=== PATIENT | male | born 1990 | race Caucasian/White ===

== ENCOUNTER 2017-02-28 17:03 | Emergency (ER) | payer SELFPAY ==
[~2017-02-28] VITALS: Ht 193 cm; Wt 95.3 kg
[~2017-02-28 17:03] MED LIST: HYDR-1231 PO; HYDR1CAP2 PO; IBUP400T22 PO; NAPR-243 PO; PRED10TA PO; TRAM50TA2 PO
[2017-02-28] MEDS ORDERED: NS IV 1000 ML 1,000 ML IV SCH (17:15)
[2017-02-28 17:30] LABS: BASOPHILS % (AUTO) 0 % (0-10); EOSINOPHILS # (AUTO) 0.2 10^3/uL (0.0-0.3); EOSINOPHILS % (AUTO) 1 % (0-10); LYMPHOCYTES # (AUTO) 0.9 X 10^3 (1.0-4.0); LYMPHOCYTES % (AUTO) 6 % (12-44); MEAN CORPUSCULAR HEMOGLOBIN 31 PG (25-34); MEAN CORPUSCULAR HGB CONC 34 G/DL (32-36); MEAN CORPUSCULAR VOLUME 90 FL (80-99); MEAN PLATELET VOLUME 10.1 FL (7.4-10.4); MONOCYTES # (AUTO) 1.1 X 10^3 (0.0-1.0); MONOCYTES % (AUTO) 7 % (0-12); NEUTROPHILS # (AUTO) 13.5 X 10^3 (1.8-7.8); NEUTROPHILS % (AUTO) 86 % (42-75); PLATELET COUNT 250 10^3/uL (130-400); RED BLOOD COUNT 5.55 10^6/uL (4.35-5.85); RED CELL DISTRIBUTION WIDTH 12.4 % (10.0-14.5); WHITE BLOOD COUNT 15.6 10^3/uL (4.3-11.0)
[2017-02-28] MEDS ORDERED: ONDANSETRON 4 MG/2 ML (SDV) Z0FRAN IVP ONE (17:30)
[2017-02-28 17:45] LABS: ANION GAP 9 MMOL/L (5-14); BAND NEUTROPHILS 4 %; BASOPHILS % (MANUAL) 0 %; BLOOD UREA NITROGEN 14 MG/DL (7-18); BUN/CREATININE RATIO 13; CALCIUM 9.8 MG/DL (8.5-10.1); CARBON DIOXIDE 28 MMOL/L (21-32); CHLORIDE 102 MMOL/L (98-107); CREATININE SERUM 1.12 MG/DL (0.60-1.30); GFR ESTIMATED > 60; GLUCOSE 108 MG/DL (70-105); LYMPHOCYTES % (MANUAL) 6 %; NEUTROPHILS % (MANUAL) 82 %; POTASSIUM 4.4 MMOL/L (3.6-5.0); SODIUM 139 MMOL/L (135-145)
--- NOTE | 2017-02-28 17:45 | ED GI ---
General Chief Complaint: Abdominal/GI Problems Stated Complaint: N/V/D Nursing Triage Note: ARRIVED VIA AMB TO ROOM 07 WITH COMPLAINTS OF N/V/D SINCE THIS AM. Sepsis Screen: No Definite Risk Source of Information: Patient, Family Exam Limitations: No Limitations History of Present Illness Time Seen By Provider: 17:39 Initial Comments The patient's a 27-year-old white male who presents with complaints of nausea vomiting and diarrhea. This began this morning. He reports that he was awake most of the night with retching and abdominal cramps. He estimates that he is both vomited and had diarrhea on 5 separate occasions. His reports that she brought a little girl out here yesterday with similar symptoms. There is no 1 in their home who has had the symptoms. He states that he has had nothing to eat today but has taken Sprite and Gatorade. Timing/Duration: 12 Hours Severity/Quality: Moderate Location: Generalized Abdomen Radiation: No Radiation Activities at Onset: None Allergies and Home Medications Allergies Coded Allergies: Amphetamine Aspartate (Verified Allergy, 09/27/11) Amphetamine Sulfate (Verified Allergy, 09/27/11) Dextroamphetamine (Verified Allergy, 09/27/11) atomoxetine HCl (Verified Allergy, 09/27/11) methylphenidate HCl (Verified Allergy, 09/27/11) Home Medications Ondansetron 8 Mg Tab.rapdis, 8 MG PO every 4 hours, #10 Prescribed by: YULIET HUERTA on 02/28/17 1748 Review of Systems Constitutional: see HPI EENTM: No Symptoms Reported Respiratory: No Symptoms Reported Cardiovascular: No Symptoms Reported Gastrointestinal: Abdominal Pain, Diarrhea, Nausea, Vomiting Genitourinary: No Symptoms Reported Musculoskeletal: no symptoms reported Skin: no symptoms reported Psychiatric/Neurological: No Symptoms Reported Endocrine: No Symptoms Reported Hematologic/Lymphatic: No Symptoms Reported Past Awqhevx-Ddbexj-Hfnhkn Hx Patient Social History Alcohol Use: Rarely Uses Recreational Drug Use: No Smoking Status: Current Everyday Smoker Recent Foreign Travel: No Contact w/Someone Who Travel: No Recent Infectious Disease Expo: No Immunizations Up To Date Date of Pneumonia Vaccine: Mar 04, 2011 Date of Influenza Vaccine: Mar 04, 2014 Seasonal Allergies Seasonal Allergies: No Surgeries History of Surgeries: Yes (pyloric stenosis as an ) Surgeries: Abdominal Respiratory History of Respiratory Disorde: No Cardiovascular History of Cardiac Disorders: No Neurological History of Neurological Disord: No Reproductive System Hx Reproductive Disorders: No Sexually Transmitted Disease: No HIV/AIDS: No Gastrointestinal History of Gastrointestinal Di: No Musculoskeletal History of Musculoskeletal Dis: No Endocrine History of Endocrine Disorders: No HEENT History of HEENT Disorders: No Cancer History of Cancer: No Psychosocial History of Psychiatric Problem: No Integumentary History of Skin or Integumenta: No Blood Transfusions History of Blood Disorders: No Family Medical History Significant Family History: No Pertinent Family Hx Physical Exam Vital Signs VS - Last 72 Hours, by Label 02/28/17 17:09 Temp 98.0 Pulse 106 Resp 18 B/P (MAP) 135/86 Pulse Ox 98 Capillary Refill : Less Than 3 Seconds General Appearance: mild distress, moderate distress HEENT: normal ENT inspection Neck: full range of motion Respiratory: chest non-tender, lungs clear, normal breath sounds, no respiratory distress, no accessory muscle use Cardiovascular: normal peripheral pulses, regular rate, rhythm, no edema, no gallop, no JVD, no murmur Gastrointestinal: abnormal bowel sounds Extremities: normal range of motion Back: normal inspection Neurologic/Psychiatric: 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, no motor/sensory deficits, alert, normal mood/affect, oriented x 3 Skin: normal color, warm/dry Lymphatic: no adenopathy Progress/Results/Core Measures Results/Orders Lab Results Laboratory Tests Test 02/28/17 17:20 Range/Units White Blood Count 15.6 H 4.3-11.0 10^3/uL Red Blood Count 5.55 4.35-5.85 10^6/uL Hemoglobin 17.0 13.3-17.7 G/DL Hematocrit 50 40-54 % Mean Corpuscular Volume 90 80-99 FL Mean Corpuscular Hemoglobin 31 25-34 PG Mean Corpuscular Hemoglobin Concent 34 32-36 G/DL Red Cell Distribution Width 12.4 10.0-14.5 % Platelet Count 250 130-400 10^3/uL Mean Platelet Volume 10.1 7.4-10.4 FL Neutrophils (%) (Auto) 86 H 42-75 % Lymphocytes (%) (Auto) 6 L 12-44 % Monocytes (%) (Auto) 7 0-12 % Eosinophils (%) (Auto) 1 0-10 % Basophils (%) (Auto) 0 0-10 % Neutrophils # (Auto) 13.5 H 1.8-7.8 X 10^3 Lymphocytes # (Auto) 0.9 L 1.0-4.0 X 10^3 Monocytes # (Auto) 1.1 H 0.0-1.0 X 10^3 Eosinophils # (Auto) 0.2 0.0-0.3 10^3/uL Basophils # (Auto) 0.0 0.0-0.1 10^3/uL Neutrophils % (Manual) 82 % Lymphocytes % (Manual) 6 % Monocytes % (Manual) 6 % Eosinophils % (Manual) 0 % Basophils % (Manual) 0 % Band Neutrophils 4 % Blood Morphology Comment NORMAL Sodium Level 139 135-145 MMOL/L Potassium Level 4.4 3.6-5.0 MMOL/L Chloride Level 102 98-107 MMOL/L Carbon Dioxide Level 28 21-32 MMOL/L Anion Gap 9 5-14 MMOL/L Blood Urea Nitrogen 14 7-18 MG/DL Creatinine 1.12 0.60-1.30 MG/DL Estimat Glomerular Filtration Rate > 60 BUN/Creatinine Ratio 13 Glucose Level 108 H 70-105 MG/DL Calcium Level 9.8 8.5-10.1 MG/DL My Orders Orders - YULIET HUERTA MD Basic Metabolic Panel (02/28/17 17:09) Cbc With Automated Diff (02/28/17 17:09) Ns Iv 1000 Ml (Sodium Chloride 0.9%) (02/28/17 17:15) Ondansetron Injection (Zofran Injectio (02/28/17 17:30) Manual Differential (02/28/17 17:20) Medications Given in ED Current Medications Medications Dose Ordered Sig/Kevin Route Start Time Stop Time Status Last Admin Dose Admin Ondansetron HCl 8 mg ONCE ONCE IVP 02/28/17 17:30 02/28/17 17:31 DC 02/28/17 17:28 8 MG Vital Signs/I&O Vital Sign - Last 12Hours 02/28/17 17:09 Temp 98.0 Pulse 106 Resp 18 B/P (MAP) 135/86 Pulse Ox 98 Blood Pressure Mean: 102 Departure Impression Impression: Primary Impression: viral gastroenteritis Disposition: 01 HOME, SELF-CARE Condition: Improved Departure-Patient Inst. Referrals: [facility] (PCP/Family) Primary Care Physician Patient Instructions: Diarrhea in Adolescents and Adults Add. Discharge Instructions: All discharge instructions reviewed with patient and/or family. Voiced understanding. Clear liquid diet until no vomiting or diarrhea for at least 12 hours. At that point you may begin with small amounts of broth and soda crackers. Take only small amounts at a time. If if tolerated you may then advance to dry toast and chicken noodle or chicken rice soup again in small quantities but frequently. As long as there is no relapse you may continue to add to the diet. I would suggest you avoid raw fruits and vegetables until clearly better. Milk is also poorly tolerated. Scripts Ondansetron (Zofran Odt) 8 Mg Tab.rapdis 8 MG PO every 4 hours, #10 TAB Prov: YULIET HUERTA MD 02/28/17 YULIET HUERTA MD Feb 28, 2017 17:45
[2017-02-28] MEDS ORDERED: ONDA8TAB9 PO (17:48)
[2017-02-28 18:05] VITALS: BP 161/78
[2017-03-01 09:33] LABS: EOSINOPHILS % (MANUAL) 2 %
== END 2017-02-28 18:05 | disposition home or self-care (01) ==
LOC: EDUNIT# 17:03 → ER 17:04
DX: A08.4 Viral intestinal infection, unspecified (principal); F17.200 Nicotine dependence, unspecified, uncomplicated; Z87.19 Personal history of other diseases of the digestive system
CPT/HCPCS: 36415; 80048; 85007; 85027; 96361; 96374

== ENCOUNTER 2017-08-08 11:01 | Emergency (ER) | payer SELFPAY ==
[~2017-08-08] VITALS: Ht 193 cm; Wt 79.4 kg
[~2017-08-08 11:01] MED LIST changes: +ONDA8TAB9 PO
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
[2017-08-08] MEDS ORDERED: TETRACAINE 0.5% OPHTH SOLN 4 ML BTL (SINGLE DOSE ONLY) OP ONE (11:15)
--- NOTE | 2017-08-08 11:22 | ED EENT ---
History of Present Illness General Stated Complaint: VAPE JUICE IN LEFT EYE Source: patient Exam Limitations: no limitations History of Present Illness Date Seen by Provider: Aug 08, 2017 Time Seen by Provider: 11:20 Initial Comments Patient was trying to clean out his Vape device (electronic nicotine delivery system) when the Vape juice shot into his left eye. He tried to flush this and home but has persistent burning sensation Timing/Duration: abrupt Severity: moderate Location: eye (L) Allergies and Home Medications Allergies Coded Allergies: Amphetamine Aspartate (Verified Allergy, Unknown, 08/08/17) amphetamine sulfate (Verified Allergy, Unknown, 08/08/17) atomoxetine HCl (Verified Allergy, Unknown, 08/08/17) dextroamphetamine (Verified Allergy, Unknown, 08/08/17) methylphenidate HCl (Verified Allergy, Unknown, 08/08/17) Home Medications Ondansetron 8 Mg Tab.rapdis, 8 MG PO every 4 hours Prescribed by: YULIET HUERTA on 02/28/17 6064 Patient Home Medication List Home Medication List Reviewed: Yes Review of Systems Constitutional: see HPI Eyes: See HPI, Blurred Vision, Foreign Body Sensation, Pain Ears: No Symptoms Reported Nose: no symptoms reported Mouth: no symptoms reported Throat: no symptoms reported Respiratory: no symptoms reported Cardiovascular: no symptoms reported Musculoskeletal: no symptoms reported Skin: no symptoms reported Past Ksfktgb-Lqgpde-Xmkulh Hx Patient Social History Recent Foreign Travel: No Contact w/Someone Who Travel: No Immunizations Up To Date Date of Pneumonia Vaccine: Mar 04, 2011 Date of Influenza Vaccine: Mar 04, 2014 Seasonal Allergies Seasonal Allergies: No Surgeries History of Surgeries: Yes (pyloric stenosis as an infant) Surgeries: Abdominal Respiratory History of Respiratory Disorde: No Cardiovascular History of Cardiac Disorders: No Neurological History of Neurological Disord: No Reproductive System Hx Reproductive Disorders: No Sexually Transmitted Disease: No HIV/AIDS: No Gastrointestinal History of Gastrointestinal Di: No Musculoskeletal History of Musculoskeletal Dis: No Endocrine History of Endocrine Disorders: No HEENT History of HEENT Disorders: No Cancer History of Cancer: No Psychosocial History of Psychiatric Problem: No Integumentary History of Skin or Integumenta: No Blood Transfusions History of Blood Disorders: No Family Medical History Significant Family History: No Pertinent Family Hx Physical Exam Vital Signs Vital Signs - First Documented 08/08/17 11:11 Temp 98.0 Pulse 81 B/P (MAP) 148/90 (109) Pulse Ox 99 O2 Delivery Room Air General Appearance: WD/WN, no apparent distress Eyes: bilateral eye normal inspection, bilateral eye PERRL, bilateral eye EOMI , bilateral eye other (there is no erythema of the left eye, no conjunctivitis or scleral injection or chemosis though he does have difficulty opening the left eye due to pain. Pupils are equal, reactive. No corneal abrasion or ulcer seen upon staining. ) Ears: bilateral ear auricle normal, bilateral ear canal normal, bilateral ear TM normal Neck: non-tender, full range of motion Respiratory: no respiratory distress, no accessory muscle use Gastrointestinal: normal bowel sounds, non tender, soft Neurologic/Psychiatric: alert, normal mood/affect, oriented x 3 Skin: normal color, warm/dry Progress/Results/Core Measures Results/Orders My Orders Orders - ANYA CLARK APRN Tetracaine 0.5% Ophth Verónica Sdv (Tetracai (08/08/17 11:15) Ns Iv 1000 Ml (Sodium Chloride 0.9%) (08/08/17 11:30) Tropicamide 1% Ophthalmic Soln (Mydriacy (08/08/17 12:00) Fluorescein Strips (Eyhht-K-Kwfcml) (08/08/17 12:00) Fluorescein Strips (Hvvzi-Q-Tkmwko) (08/08/17 11:53) Medications Given in ED Current Medications Medications Dose Ordered Sig/Kevin Route Start Time Stop Time Status Last Admin Dose Admin Tetracaine HCl 1 OR 2 DROPS INTO AFFEC... ONCE ONCE OP 08/08/17 11:15 08/08/17 11:16 DC 08/08/17 11:18 0.5 ML Vital Signs/I&O Vital Sign - Last 12Hours 08/08/17 11:11 Temp 98.0 Pulse 81 B/P (MAP) 148/90 (109) Pulse Ox 99 O2 Delivery Room Air Departure Communication (Admissions) Progress Notes 1126- left eye anesthetized with 2 drops of tetracaine ophthalmic. Bogdan lens applied and attached to 1 L bag of warm normal saline. Eyes being flushed. Tetracaine drops helped minimally, light worsens the pain in his eye and there is an since we'll photophobia. He states that he did rub his eye very hard after he got this juice and it is very likely has some component of traumatic iritis. There is no hyphema. I will dilate his eye with 2 drops of tropicamide, have him follow-up with ophthalmology Dr cuba tomorrow at 0900. Impression Impression: Primary Impression: irritant exposure left eye Additional Impression: Traumatic iritis Disposition: HOME, SELF-CARE Condition: Improved Departure-Patient Inst. Decision time for Depature: 11:27 Referrals: [facility] [place] (PCP/Family) Primary Care Physician GLENN CUBA OD Patient Instructions: Chemical Eye Injury (DC) Add. Discharge Instructions: 1. Return to ER for any concerns 2. Follow-up with Dr. Cuba tomorrow morning at 9 AM. You should arrive at about 850 to fill out paperwork for your visit. ANYA CLARK APRN Aug 08, 2017 11:22
[2017-08-08] MEDS ORDERED: NS IV 1000 ML 1,000 ML IV SCH (11:30)
[2017-08-08] MEDS ORDERED: FLUORESCEIN (FLUOR-I-STRIPS) 1 MG STRP ONE (11:53)
[2017-08-08] MEDS ORDERED: TROPICAMIDE 1% OPH SOLN (MYDRIACYL) 3 ML BTL OU ONE (12:00)
[2017-08-08] MEDS ORDERED: FLUORESCEIN (FLUOR-I-STRIPS) 1 MG STRP OU ONE (12:00)
[2017-08-08 12:15] VITALS: BP 148/90
== END 2017-08-08 12:13 | disposition home or self-care (01) ==
LOC: EDUNIT# 11:01 → ER 11:03
DX: T26.82XA Corrosions of other specified parts of left eye and adnexa, initial encounter (principal); H20.9 Unspecified iridocyclitis; Z88.5 Allergy status to narcotic agent; Z88.8 Allergy status to other drugs, medicaments and biological substances; Z87.19 Personal history of other diseases of the digestive system
CPT/HCPCS: 96360; 99283

== ENCOUNTER 2018-10-04 22:07 | Emergency (ER) | payer SELFPAY ==
[~2018-10-04] VITALS: Ht 193 cm; Wt 81.6 kg
--- OUTSIDE RECORDS SUMMARY | 2018-10-04 22:12 | XMS REPORT ---
Author Author Migration, Doctor Organization [facility] Address Unknown Phone Unavailable Care Team Providers Care Transit Clerk Name Role Phone Migration, Doctor Unavailable Unavailable PROBLEMS No Known Problems ALLERGIES No Information ENCOUNTERS Encounter Location Date Diagnosis [facility] [address] [address] Jul, Body aches R52 and Gastroenteritis K52.9 [facility] [address] [address] Mar, Right hamstring injury, initial encounter S76.301A [facility] [address] [address] Mar, [facility] [address] [address] Feb, Gum abscess K05.219 [facility] [address] [address] Jan, [facility] [id number] [place] [address] Jan, [facility] [id number] [place] [address] Jan, Jaw pain R68.84 and Family history of osteoporosis in mother Z82.62 [facility] [id number] [place] [address] Jan, Jaw pain R68.84 and Family history of osteoporosis in mother Z82.62 [facility] [address] [address] Sep, [facility] [address] [address] Sep, [facility] [place] [facility] [address] [id number] [place] [address] May, [facility] [place] [facility] [address] [id number] [place] [address] May, [facility] [place] [facility] [address] [id number] [place] [address] May, [facility] [place] [facility] [address] [id number] [place] [address] May, [facility] [place] [facility] [address] [id number] [place] [address] May, [facility] [place] [facility] [address] [id number] [place] [address] May, [facility] [place] [facility] [address] [id number] [place] [address] May, [facility] [place] [facility] [address] [id number] [place] [address] May, [facility] [place] [facility] [address] [id number] [place] [address] May, [facility] [place] [facility] [address] [id number] [place] [address] May, [facility] [place] [facility] [address] [id number] [place] [address] Apr, [facility] [place] [facility] [address] [id number] [place] [address] Apr, [facility] [place] [facility] [address] [id number] [place] [address] Mar, [facility] [place] [facility] [address] [id number] [place] [address] Mar, [facility] [place] [facility] [address] [id number] [place] [address] Mar, [facility] [place] [facility] [address] [id number] [place] [address] October, [facility] [address] [facility] [id number] [place] [address] Jul, [facility] [address] [id number] [address] May, [facility] [address] [facility] [id number] [address] Apr, [facility] [address] [id number] [address] Mar, IMMUNIZATIONS No Known Immunizations SOCIAL HISTORY Never Assessed [place] [place] VITAL SIGNS MEDICATIONS No Known Medications RESULTS No Results PROCEDURES No Known procedures INSTRUCTIONS MEDICATIONS ADMINISTERED No Known Medications MEDICAL (GENERAL) HISTORY Type Description Date Surgical History pyloric stenosis 1991 Hospitalization History surgery
--- OUTSIDE RECORDS SUMMARY | 2018-10-04 22:12 | XMS REPORT ---
Author Author Migration, Doctor Organization [facility] Address Unknown Phone Unavailable Care Team Providers Care Drafter Cartographic Name Role Phone Migration, Doctor Unavailable Unavailable PROBLEMS No Known Problems ALLERGIES No Information ENCOUNTERS Encounter Location Date Diagnosis [facility] [address] [address] Jul, Body aches R52 and Gastroenteritis K52.9 [facility] [address] [address] Mar, Right hamstring injury, initial encounter S76.301A [facility] [address] [address] Mar, [facility] [address] [address] Feb, Gum abscess K05.219 [facility] [address] [address] Jan, [facility] [id number] [place] [address]- 4040 Jan, [facility] [id number] [place] [address]19- 6200 Jan, Jaw pain R68.84 and Family history of osteoporosis in mother Z82.62 [facility] [id number] [place] [address]70- 7819 Jan, Jaw pain R68.84 and Family history of osteoporosis in mother Z82.62 [facility] [address] [address] Sep, [facility] [address] [address] Sep, [facility] [place] [facility] [address] [id number] [place] [address] May, [facility] [place] [facility] [address] [id number] [place] [address] 9[address] May, [facility] [place] [facility] [address] [id number] [place] [address] 6543 May, [facility] [place] [facility] [address] [id number] [place] [address]- 4726 May, [facility] [place] [facility] [address] [id number] [place] [address]- 0087 May, [facility] [place] [facility] [address] [id number] [place] [address]- 9730 May, [facility] [place] [facility] [address] [id number] [place] [address]- 9288 May, [facility] [place] [facility] [address] [id number] [place] [address]- 1114 May, [facility] [place] [facility] [address] [id number] [place] [address]- 9385 May, [facility] [place] [facility] [address] [id number] [place] [address]- 7200 May, [facility] [place] [facility] [address] [id number] [place] [address]- 8888 Apr, [facility] [place] [facility] [address] [id number] [place] [address]- 5209 Apr, [facility] [place] [facility] [address] [id number] [place] [address]- 9750 Mar, [facility] [place] [facility] [address] [id number] [place] [address]- 8626 Mar, [facility] [place] [facility] [address] [id number] [place] [address]- 3271 Mar, [facility] [place] [facility] [address] [id number] [place] [address] October, [facility] [address] [facility] [id number] [place] [address] Jul, [facility] [address] [facility] [id number] [place] [address] 25[address] May, [facility] [address] [facility] [id number] [place] [address] 25[address] Apr, [facility] [address] [facility] [id number] [place] [address] 25[address] Mar, IMMUNIZATIONS No Known Immunizations SOCIAL HISTORY Never Assessed REASON FOR VISIT E[place] [place] OF CARE VITAL SIGNS MEDICATIONS Medication Instructions Dosage Frequency Start Date End Date Duration Status Cipro 500 mg 1 tablet by Oral route every 12 hours for 10 day(s) May Active Ibuprofen 800 mg 1 Tablet by Po route 3 times per day take with food. May, Active PredniSONE 10 mg 1 Tablet 2 times per day for 5 days Take at 8 am and noon. May, Active Flexeril 10 mg 1 tablet by Oral route 3 times per day PRN muscle spasm May, Active RESULTS No Results PROCEDURES No Known procedures INSTRUCTIONS MEDICATIONS ADMINISTERED No Known Medications MEDICAL (GENERAL) HISTORY Type Description Date Surgical History pyloric stenosis 1991 Hospitalization History surgery
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
--- OUTSIDE RECORDS SUMMARY | 2018-10-04 22:12 | XMS REPORT ---
Author Author Migration, Doctor Organization [facility] Address Unknown Phone Unavailable Care Team Providers Care Patrol Man Name Role Phone Migration, Doctor Unavailable Unavailable PROBLEMS No Known Problems ALLERGIES No Information ENCOUNTERS Encounter Location Date Diagnosis [facility] [address] [address] Jul, Body aches R52 and Gastroenteritis K52.9 [facility] [address] [address] Mar, Right hamstring injury, initial encounter S76.301A [facility] [address] [address]- [address] Mar, [facility] [address] [address] Feb, Gum abscess K05.219 [facility] [address] [address]- [address] Jan, [facility] [id number] [place] [address]- 5025 Jan, [facility] [id number] [place] [address]- 5636 Jan, Jaw pain R68.84 and Family history of osteoporosis in mother Z82.62 [facility] [id number] [place] [address]- 7229 Jan, Jaw pain R68.84 and Family history of osteoporosis in mother Z82.62 [facility] [address] [address]- [address] Sep, [facility] [address] [address]- 7817 Sep, [facility] [place] [facility] [address] [id number] [place] [address]- 5658 May, [facility] [place] [facility] [address] [id number] [place] [address]- 4444 May, [facility] [place] [facility] [address] [id number] [place] [address]- 0720 May, [facility] [place] [facility] [address] [id number] [place] [address]- 7636 May, [facility] [place] [facility] [address] [id number] [place] [address]- 8857 May, [facility] [place] [facility] [address] [id number] [place] [address]- 1514 May, [facility] [place] [facility] [address] [id number] [place] [address]- 2437 May, [facility] [place] [facility] [address] [id number] [place] [address]- 0855 May, [facility] [place] [facility] [address] [id number] [place] [address]- 5896 May, [facility] [place] [facility] [address] [id number] [place] [address]- 8046 May, [facility] [place] [facility] [address] [id number] [place] [address]- 7525 Apr, [facility] [place] [facility] [address] [id number] [place] [address]- 4080 Apr, [facility] [place] [facility] [address] [id number] [place] [address]- 7934 Mar, [facility] [place] [facility] [address] [id number] [place] [address]- 6384 Mar, [facility] [place] [facility] [address] [id number] [place] [address]- 7264 Mar, [facility] [place] [facility] [address] [id number] [place] [address] October, [facility] [address] [facility] [id number] [place] [address]- 2546 Jul, [facility] [address] [id number] [address]- 2546 May, [facility] [address] [facility] [id number], [place] [address]- 2546 Apr, [facility] [address] [id number] [address]- 25[address] Mar, IMMUNIZATIONS No Known Immunizations SOCIAL HISTORY Never Assessed REASON FOR VISIT EMR-[facility] PLAN OF CARE VITAL SIGNS MEDICATIONS No Known Medications RESULTS No Results PROCEDURES No Known procedures INSTRUCTIONS MEDICATIONS ADMINISTERED No Known Medications MEDICAL (GENERAL) HISTORY Type Description Date Surgical History pyloric stenosis 1991 Hospitalization History surgery
--- OUTSIDE RECORDS SUMMARY | 2018-10-04 22:12 | XMS REPORT ---
Author Author FERDINAND HAN Organization [facility] Address [address] [place] [address] Care Team Providers Care Fire Investigation Lieutenant Name Role Phone FERDINAND HAN Unavailable PROBLEMS Unknown Problems ALLERGIES Substance Reaction Event Type Date Status Strattera nausea Drug Allergy Feb, Active Ritalin Unknown Drug Allergy Feb, Active ENCOUNTERS Encounter Location Date Diagnosis [facility] [id number] [place] [address] Feb, Gum abscess K05.219 [facility] [address] [address]- [address] Jan, [facility] [id number] [place] [address]- 0978 Jan, [facility] [id number] [place] [address] 08598- 0376 Jan, Jaw pain R68.84 and Family history of osteoporosis in mother Z82.62 [facility] [id number] [place] [address] 35797- 5632 Jan, Jaw pain R68.84 and Family history of osteoporosis in mother Z82.62 [facility] [id number] [place] [address]09- 6992 Sep, [facility] [id number] [place] [address] 59991- 6588 Sep, [facility] [id number] [place] [address] 87915- 7043 May, [facility] [id number] [place] [address] 86932- 0671 May, [facility] [address] [facility] [id number] [place] [address]- 2183 May, [facility] [place] [facility] [address] [id number] [place] [address]- 5846 May, [facility] [place] [facility] [address] [id number] [place] [address]- 9236 May, [facility] [place] [facility] [address] [id number] [place] [address]- 7346 May, [facility] [place] [facility] [address] [id number] [place] [address]- 0470 May, [facility] [place] [facility] [address] [id number] [place] [address]- 8398 May, [facility] [place] [facility] [address] [id number] [place] [address] May, [facility] [place] [facility] [address] [id number] [place] [address]- 8477 May, [facility] [place] [facility] [address] [id number] [place] [address]- 4141 Apr, [facility] [place] [facility] [address] [id number] [place] [address]- 8266 Apr, [facility] [place] [facility] [address] [id number] [place] [address]- 8065 Mar, [facility] [place] [facility] [address] [id number] [place] [address]- 1356 Mar, [facility] [place] [facility] [address] [id number] [place] [address]- 1632 Mar, [facility] [place] [facility] [address] [id number] [place] [address]- 8616 October, [facility] [place] [facility] [address] [id number] [place] [address]- 2546 Jul, [facility] [place] [facility] [address] [id number] [place] [address]- 3366 May, [facility] [address] [facility] [id number] [place] [address]- 2546 Apr, [facility] [address] [facility] [id number], [place] [address]- 2546 Mar, IMMUNIZATIONS No Known Immunizations SOCIAL HISTORY Never Assessed REASON FOR VISIT saw sonia on the for dental pain. thinks its still infected. pain on right lower side in the middle. [email or web address] PLAN OF CARE Activity Details Follow Up prn Reason: VITAL SIGNS Height 74 in 2018-02-02 Weight 165.8 lbs 2018-02-02 Temperature 98.9 degrees Fahrenheit 2018-02-02 Heart Rate 80 bpm 2018-02-02 Respiratory Rate 20 2018-02-02 BMI 21.29 kg/m2 2018-02-02 Blood pressure systolic 118 mmHg 2018-02-02 Blood pressure diastolic 76 mmHg 2018-02-02 MEDICATIONS Medication Instructions Dosage Frequency Start Date End Date Duration Status Clindamycin HCl 300 MG Orally Three times a day 1 capsule 8h Feb, Feb, 10 day(s) Active Vitamin D3 Ultra Strength 5000 UNIT Orally Once a day 1 capsule 24h Active Cholecalciferol 52742 UNIT Orally 2 times a week 1 capsule Jan, Apr, 12 weeks Active RESULTS No Results PROCEDURES No Known procedures INSTRUCTIONS MEDICATIONS ADMINISTERED No Known Medications MEDICAL (GENERAL) HISTORY Type Description Date Surgical History pyloric stenosis 1991
--- OUTSIDE RECORDS SUMMARY | 2018-10-04 22:12 | XMS REPORT ---
Author Author FREDO MAS Organization [facility] Address [address] [place] [address] Care Team Providers Care Change Lead Name Role Phone FREDO MAS Unavailable PROBLEMS No Known Problems ALLERGIES No Information ENCOUNTERS Encounter Location Date Diagnosis [facility] [id number] [place] [address]- 0783 Mar, Right hamstring injury, initial encounter S76.301A [facility] [id number] [place] [address] 923[address]- 7405 Mar, [facility] [id number] [place] [address] 07394 -0769 Feb, Gum abscess K05.219 [facility] [id number] [place] [address] 32684- 3507 Jan, [facility] [id number] [place] [address] 05788- 7814 Jan, [facility] [id number] [place] [address] 42023- 8763 Jan, Jaw pain R68.84 and Family history of osteoporosis in mother Z82.62 [facility] [id number] [place] [address] 12966- 1471 Jan, Jaw pain R68.84 and Family history of osteoporosis in mother Z82.62 [facility] [id number] [place] [address] 48381- 7892 Sep, [facility] [id number] [place] [address] 27504- 7251 Sep, [facility] [id number] [place] [address] 67685- 9631 May, [facility] [place] [facility] [address] [id number] [place] [address]- 4142 May, [facility] [place] [facility] [address] [id number] [place] [address]- 6378 May, [facility] [place] [facility] [address] [id number] [place] [address] May, [facility] [place] [facility] [address] [id number] [place] [address]- 1773 May, [facility] [place] [facility] [address] [id number] [place] [address]- 9358 May, [facility] [place] [facility] [address] [id number] [place] [address]- 0223 May, [facility] [place] [facility] [address] [id number] [place] [address]- 5831 May, [facility] [place] [facility] [address] [id number] [place] [address]- 5035 May, [facility] [place] [facility] [address] [id number] [place] [address]- 8789 May, [facility] [place] [facility] [address] [id number] [place] [address]- 3864 Apr, [facility] [place] [facility] [address] [id number] [place] [address]- 8324 Apr, [facility] [place] [facility] [address] [id number] [place] [address]- 8498 Mar, [facility] [place] [facility] [address] [id number] [place] [address]- 8740 Mar, [facility] [place] [facility] [address] [id number] [place] [address]- 3844 Mar, [facility] [place] [facility] [address] [id number] [place] [address]- 5962 October, [facility] [place] [facility] [address] [id number] [place] [address]- 5136 Jul, [facility] [address] [facility] [id number] [place] [address] 2546 May, [facility] [address] [facility] [id number] [place] [address]- 9089 Apr, [facility] [address] [facility] [id number] [place] [address]- 2438 Mar, IMMUNIZATIONS No Known Immunizations SOCIAL HISTORY Never Assessed REASON FOR VISIT Requests return call PLAN OF CARE VITAL SIGNS MEDICATIONS No Known Medications RESULTS No Results PROCEDURES No Known procedures INSTRUCTIONS MEDICATIONS ADMINISTERED No Known Medications MEDICAL (GENERAL) HISTORY Type Description Date Surgical History pyloric stenosis 1991 Hospitalization History surgery
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
--- OUTSIDE RECORDS SUMMARY | 2018-10-04 22:13 | XMS REPORT ---
Author Author FREDO MAS Organization [facility] Address [address] [place] [address] Care Team Providers Care Poster Name Role Phone FREDO MAS Unavailable PROBLEMS Unknown Problems ALLERGIES No Information ENCOUNTERS Encounter Location Date Diagnosis [facility] [id number] [place] [address]98 Feb, Gum abscess K05.219 [facility] [id number] [place] [address] 19129- 9164 Jan, [facility] [id number] [place] [address] 91087- 5343 Jan, [facility] [id number] [place] [address] 94760- 9994 Jan, Jaw pain R68.84 and Family history of osteoporosis in mother Z82.62 [facility] [id number] [place] [address] 96678- 3228 Jan, Jaw pain R68.84 and Family history of osteoporosis in mother Z82.62 [facility] [address] [address] Sep, [facility] [id number] [place] [address] 22587- 4180 Sep, [facility] [id number] [place] [address] 79905- 0886 May, [facility] [id number] [place] [address] 04492- 9992 May, [facility] [id number] [address] May, [facility] [id number] [place] [address] 17 May, 2014 [facility] [address] [id number] [place] [address] 7873 May, [facility] [place] [facility] [address] [id number] [place] [address] May, [facility] [place] [facility] [address] [id number] [place] [address]- 0474 May, [facility] [place] [facility] [address] [id number] [place] [address] 0839 May, [facility] [place] [facility] [address] [id number] [place] [address]- 0261 May, [facility] [place] [facility] [address] [id number] [place] [address] May, [facility] [place] [facility] [address] [id number] [place] [address]- 5283 Apr, [facility] [place] [facility] [address] [id number] [place] [address] 8417 Apr, [facility] [place] [facility] [address] [id number] [place] [address]- 7429 Mar, [facility] [address] [id number] [place] [address]- 2725 Mar, [facility] [place] [facility] [address] [id number] [place] [address]- 2453 Mar, [facility] [place] [facility] [address] [id number] [place] [address]- 6481 October, [facility] [place] [facility] [address] [id number] [place] [address]- 6476 Jul, [facility] [place] [facility] [address] [id number] [place] [address]- 2546 May, [facility] [place] [facility] [address] [id number] [place] [address]- 3923 Apr, [facility] [address] [facility] [id number] [place] [id number] Mar, IMMUNIZATIONS No Known Immunizations SOCIAL HISTORY Never Assessed REASON FOR VISIT Lab results PLAN OF CARE VITAL SIGNS MEDICATIONS No Known Medications RESULTS No Results PROCEDURES No Known procedures INSTRUCTIONS MEDICATIONS ADMINISTERED No Known Medications MEDICAL (GENERAL) HISTORY Type Description Date Surgical History pyloric stenosis 1992
--- OUTSIDE RECORDS SUMMARY | 2018-10-04 22:13 | XMS REPORT ---
Author Author FREDO MAS Organization [facility] Address [address] [place] [address] Care Team Providers Care Gamb Cutter Name Role Phone FREDO MAS Unavailable PROBLEMS Unknown Problems ALLERGIES No Information ENCOUNTERS Encounter Location Date Diagnosis [facility] [id number] [place] [address]64 -5593 Feb, Gum abscess K05.219 [facility] [id number] [place] [address] 95659- 2882 Jan, [facility] [id number] [place] [address] 24698- 9650 Jan, [facility] [id number] [place] [address] 40391- 1712 Jan, Jaw pain R68.84 and Family history of osteoporosis in mother Z82.62 [facility] [id number] [place] [address] 27715- 4168 Jan, Jaw pain R68.84 and Family history of osteoporosis in mother Z82.62 [facility] [address] [address]100 Sep, [facility] [id number] [place] [address] 56616- 4190 Sep, [facility] [id number] [place] [address] 49073- 7864 May, [facility] [id number] [place] [address] 24570- 4307 May, [facility] [address] [id number] [address] 1432 May, [facility] [address] [place] [address]- 7[address] 17 May, 2014 [facility] [address] [id number] [place] [address]- 3994 May, [facility] [place] [facility] [address] [id number] [place] [address] May, [facility] [place] [facility] [address] [id number] [place] [address]- 0458 May, [facility] [place] [facility] [address] [id number] [place] [address]- 1855 May, [facility] [place] [facility] [address] [id number] [place] [address]- 9079 May, [facility] [place] [facility] [address] [id number] [place] [address] May, [facility] [place] [facility] [address] [id number] [place] [address]- 4856 Apr, [facility] [place] [facility] [address] [id number] [place] [address]- 3505 Apr, [facility] [place] [facility] [address] [id number] [place] [address]- 4425 Mar, [facility] [address] [id number] [place] [address]- 6004 Mar, [facility] [place] [facility] [address] [id number] [place] [address]- 6411 Mar, [facility] [place] [facility] [address] [id number] [place] [address]- 7466 October, [facility] [place] [facility] [address] [id number] [place] [address]- 0336 Jul, [facility] [place] [facility] [address] [id number] [place] [address]- 2546 May, [facility] [place] [facility] [address] [id number] [place] [address]- 3613 Apr, [facility] [address] [facility] [id number] [place] [address]- 0180 Mar, IMMUNIZATIONS No Known Immunizations SOCIAL HISTORY Never Assessed REASON FOR VISIT Lab (walk-in)--JAYCOB [facility] PLAN OF CARE VITAL SIGNS MEDICATIONS No Known Medications RESULTS No Results PROCEDURES Procedure Date Ordered Result Body Site COMPREHEN METABOLIC PANEL Jan 22, 2018 ASSAY OF VITAMIN D Jan 22, 2018 VENIPSTEVEN, ROUTINE* Jan 22, 2018 INSTRUCTIONS MEDICATIONS ADMINISTERED No Known Medications MEDICAL (GENERAL) HISTORY Type Description Date Surgical History pyloric stenosis 1992
--- OUTSIDE RECORDS SUMMARY | 2018-10-04 22:13 | XMS REPORT ---
Author Author FREDO MAS Organization [facility] Address [address] [place] [address] Care Team Providers Care Fur Polisher Name Role Phone FREDO MAS Unavailable PROBLEMS Unknown Problems ALLERGIES No Known Allergies ENCOUNTERS Encounter Location Date Diagnosis [facility] [id number] [place] [address]165 -0057 Feb, Gum abscess K05.219 [facility] [id number] [place] [address] 09108- 2543 Jan, [facility] [id number] [place] [address] 18862- 8628 Jan, [facility] [id number] [place] [address] 13223- 3987 Jan, Jaw pain R68.84 and Family history of osteoporosis in mother Z82.62 [facility] [id number] [place] [address] 87398- 4938 Jan, Jaw pain R68.84 and Family history of osteoporosis in mother Z82.62 [facility] [address], [place] [address]- 4582 Sep, [facility] [id number] [place] [address] 22876- 8902 Sep, [facility] [id number] [place] [address] 68085- 9989 May, [facility] [id number] [place] [address] 51342- 6850 May, [facility] [address], [place] [address]- 9706 May, [facility] [id number] [place] [address]- 7382 17 May, 2014 [facility] [address] [id number] [place] [address]- 8163 May, [facility] [place] [facility] [address] [id number] [place] [address] May, [facility] [place] [facility] [address] [id number] [place] [address]- 5078 May, [facility] [place] [facility] [address] [id number] [place] [address]- 5912 May, [facility] [place] [facility] [address] [id number] [place] [address]- 2041 May, [facility] [place] [facility] [address] [id number] [place] [address]- 4139 May, [facility] [place] [facility] [address] [id number] [place] [address]- 2581 Apr, [facility] [address] [id number] [place] [address]- 2410 Apr, [facility] [place] [facility] [address] [id number] [place] [address]- 9718 Mar, [facility] [address] [id number] [place] [address]- 6714 Mar, [facility] [place] [facility] [address] [id number] [place] [address]- 8275 Mar, [facility] [place] [facility] [address] [id number] [place] [address]- 3628 October, [facility] [place] [facility] [address] [id number] [place] [address]- 3306 Jul, [facility] [place] [facility] [address] [id number] [place] [address]- 2546 May, [facility] [place] [facility] [address] [id number] [place] [address]- 6485 Apr, [facility] [address] [facility] [id number] [place] [address]- 3029 Mar, IMMUNIZATIONS No Known Immunizations SOCIAL HISTORY Never Assessed REASON FOR VISIT ear/jaw pain. pain in right jaw that radiates to his right ear. heat has helped with the pain. started last night. Rafy HOLLAND PLAN OF CARE VITAL SIGNS Height 74 in 2018-01-21 Weight 166.7 lbs 2018-01-21 Temperature 98.2 degrees Fahrenheit 2018-01-21 Heart Rate 76 bpm 2018-01-21 Respiratory Rate 18 2018-01-21 BMI 21.40 kg/m2 2018-01-21 Blood pressure systolic 132 mmHg 2018-01-21 Blood pressure diastolic 76 mmHg 2018-01-21 MEDICATIONS Medication Instructions Dosage Frequency Start Date End Date Duration Status Amoxicillin 500 mg Orally 2 times a day 2 capsules 12h Jan,Jan 10 day(s) Active Ibuprofen 800 mg 1 Tablet by Po route 3 times per day take with food. May, Not-Taking Robert 5-325 MG Orally every 6 hrs 1 tablet as needed 6h Jan, Active Cipro 500 mg 1 tablet by Oral route every 12 hours for 10 day(s) May Not-Taking Flexeril 10 mg 1 tablet by Oral route 3 times per day PRN muscle spasm May, Not-Taking PredniSONE 10 mg 1 Tablet 2 times per day for 5 days Take at 8 am and noon. May, Not-Taking RESULTS No Results PROCEDURES No Known procedures INSTRUCTIONS MEDICATIONS ADMINISTERED No Known Medications MEDICAL (GENERAL) HISTORY Type Description Date Surgical History pyloric stenosis 1991
--- OUTSIDE RECORDS SUMMARY | 2018-10-04 22:13 | XMS REPORT ---
Author Author FREDO MAS Organization [facility] Address [address] [place] [address] Care Team Providers Care Materials And Processes Manager Name Role Phone FREDO MAS Unavailable PROBLEMS Unknown Problems ALLERGIES No Information ENCOUNTERS Encounter Location Date Diagnosis [facility] [address] [place] [address]21 -1406 Feb, Gum abscess K05.219 [facility] [id number] [place] [address] 56193- 0264 Jan, [facility] [id number] [place] [address] 65695- 6459 Jan, [facility] [id number] [place] [address] 31131- 6701 Jan, Jaw pain R68.84 and Family history of osteoporosis in mother Z82.62 [facility] [id number] [place] [address] 85872- 9815 Jan, Jaw pain R68.84 and Family history of osteoporosis in mother Z82.62 [facility] [address], [place] [address]- [address] Sep, [facility] [id number] [place] [address] 42554- 3245 Sep, [facility] [id number] [place] [address] 93894- 1681 May, [facility] [id number] [place] [address] 30159- 0966 May, [facility] [address] [id number] [address]- 5002 May, [facility] [address] [place] [address]- 6709 17 May, 2014 [facility] [address] [id number] [place] [address]- 0466 May, [facility] [place] [facility] [address] [id number] [place] [address] May, [facility] [place] [facility] [address] [id number] [place] [address]- 9936 May, [facility] [place] [facility] [address] [id number] [place] [address]- 8639 May, [facility] [place] [facility] [address] [id number] [place] [address]- 3052 May, [facility] [place] [facility] [address] [id number] [place] [address] May, [facility] [place] [facility] [address] [id number] [place] [address]- 9089 Apr, [facility] [place] [facility] [address] [id number] [place] [address]- 1472 Apr, [facility] [place] [facility] [address] [id number] [place] [address]- 1072 Mar, [facility] [address] [id number] [place] [address]- 6314 Mar, [facility] [place] [facility] [address] [id number] [place] [address]- 7997 Mar, [facility] [place] [facility] [address] [id number] [place] [address]- 5057 October, [facility] [place] [facility] [address] [id number] [place] [address]- 9216 Jul, [facility] [place] [facility] [address] [id number] [place] [address]- 2546 May, [facility] [place] [facility] [address] [id number] [place] [address]- 6123 Apr, [facility] [address] [facility] [id number] [place] [address]- 2449 Mar, IMMUNIZATIONS No Known Immunizations SOCIAL HISTORY Never Assessed REASON FOR VISIT Lab results PLAN OF CARE VITAL SIGNS MEDICATIONS Medication Instructions Dosage Frequency Start Date End Date Duration Status Cholecalciferol 98227 UNIT Orally 2 times a week 1 capsule Jan, Apr, 12 weeks Active RESULTS No Results PROCEDURES No Known procedures INSTRUCTIONS MEDICATIONS ADMINISTERED No Known Medications MEDICAL (GENERAL) HISTORY Type Description Date Surgical History pyloric stenosis 1992
[2018-10-04 23:22] VITALS: BP 127/73
--- NOTE | 2018-10-04 23:22 | NUR ---
c/o high blood pressure when taken with wrist cuff today. pt denies hx of htn. does report increased palpatations since dental extraction. denies needs at this time.
--- NOTE | 2018-10-04 23:40 | ED General ---
General Chief Complaint: General Problems/Pain Stated Complaint: HIGH BLOOD PRESSURE Nursing Triage Note: PT AMB TO TRIAGE WITH COMPLAINT OF HTN. STATES HE TOOK HIS BP AT HOME AND STATES IT WAS HIGH. STATES HE ALSO FEELS LIKE HIS HEART IS SKIPPING A BEAT. STATES HE HAD HIS TEETH PULLED ON SUNDAY. 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 PCP: JOANA-K Allergies and Home Medications Allergies Coded Allergies: Amphetamine Aspartate (Verified Allergy, Unknown, 08/08/17) amphetamine sulfate (Verified Allergy, Unknown, 08/08/17) atomoxetine HCl (Verified Allergy, Unknown, 08/08/17) dextroamphetamine (Verified Allergy, Unknown, 08/08/17) methylphenidate HCl (Verified Allergy, Unknown, 08/08/17) Home Medications Ondansetron 8 Mg Tab.rapdis, 8 MG PO every 4 hours Prescribed by: YULIET HUERTA on 02/28/17 1593 Patient Home Medication List Home Medication List Reviewed: Yes Review of Systems Review of Systems Constitutional: no symptoms reported Respiratory: no symptoms reported Cardiovascular: see HPI Gastrointestinal: no symptoms reported Genitourinary: no symptoms reported Musculoskeletal: no symptoms reported Skin: no symptoms reported Psychiatric/Neurological: Anxiety Hematologic/Lymphatic: No Symptoms Reported Immunological/Allergic: no symptoms reported Past Oiysnlk-Snyfxm-Utvfum Hx Patient Social History Alcohol Use: Denies Use Recreational Drug Use: No Smoking Status: Current Everyday Smoker (1/2 PPD) Type Used: Cigarettes, Electronic/Vapor Recent Foreign Travel: No Contact w/Someone Who Travel: No Recent Infectious Disease Expo: No Immunizations Up To Date Tetanus Booster (TDap): Unknown PED Vaccines UTD: Yes Date of Pneumonia Vaccine: Mar 04, 2011 Date of Influenza Vaccine: Mar 04, 2014 Seasonal Allergies Seasonal Allergies: No Past Medical History Surgeries: Yes (PYLORIC STENOSIS REPAIR INFANT) Abdominal Respiratory: No Cardiac: No Neurological: No Reproductive Disorders: No Genitourinary: No Gastrointestinal: No Musculoskeletal: No Endocrine: No HEENT: Yes (DENTAL PROBLEMS) Cancer: No Psychosocial: Yes ADD/ADHD, Anxiety Integumentary: No Blood Disorders: No Family Medical History No Pertinent Family Hx Physical Exam Vital Signs Vital Signs - First Documented 10/04/18 10/04/18 22:26 23:47 Temp 98.1 Pulse 66 Resp 19 B/P (MAP) 135/67 (89) Pulse Ox 99 O2 Delivery Room Air Capillary Refill : Less Than 3 Seconds Height, Weight, BMI Height: 6'4.00" Weight: 180lbs. oz. 81.639065dd; 22.25 BMI Method:Stated General Appearance: No Apparent Distress, WD/WN, Other (MALODOROUS, UNKEMPT, COVERED IN ANIMAL HAIR) HEENT: PERRL/EOMI, Other (POOR DENTITION, FRONT TEETH MISSING) Respiratory: Normal Breath Sounds, No Accessory Muscle Use, No Respiratory Distress Cardiovascular: Regular Rate, Rhythm, No Edema, No JVD, No Murmur, Normal Peripheral Pulses Extremity: Normal Range of Motion, No Pedal Edema Neurologic/Psychiatric: Alert, Oriented x3, No Motor/Sensory Deficits, Normal Mood/Affect, hot tar roofer helper II-XII Norm as Tested Skin: Normal Color Progress/Results/Core Measures Suspected Sepsis Recent Fever Within 48 Hours: No Infection Criteria Present: None New/Unexplained Altered Menta: No Sepsis Screen: No Definite Risk SIRS Temperature: Pulse: 65 Respiratory Rate: 18 Blood Pressure 127 /73 Mean: 91 Results/Orders Vital Signs/I&O 10/04/18 10/04/18 10/04/18 22:26 23:22 23:47 Temp 98.1 Pulse 66 65 61 Resp 19 18 18 B/P (MAP) 135/67 (89) 127/73 (91) 125/90 (102) Pulse Ox 99 100 98 O2 Delivery Room Air Room Air Room Air Capillary Refill : Less Than 3 Seconds Blood Pressure Mean: 91 Progress Note : Progress Note NO HTN, ARRHYTHMIAS OR PALPITATIONS DURING ER STAY BP 127/73 AND 119/84, PULSE IN 70'S. PT OPTS TO FOLLOW UP WITH [facility] FOR FURTHER EVALUATION Departure Impression Primary Impression: Blood pressure check Disposition: 01 HOME, SELF-CARE Condition: Stable Departure-Patient Inst. Referrals: [facility] (PCP/Family) Primary Care Physician Patient Instructions: How to Keep Track of Your Heart Rate and Blood Pressure Add. Discharge Instructions: FOLLOW UP WITH [facility] IF SYMPTOMS PERSIST All discharge instructions reviewed with patient and/or family. Voiced understanding. JOSSELYN KUMAR DO October 04, 2018 23:39
[2018-10-04 23:47] VITALS: BP 125/90
== END 2018-10-04 23:48 | disposition home or self-care (01) ==
LOC: EDUNIT# 22:07 → ER 22:08
DX: R03.0 Elevated blood-pressure reading, without diagnosis of hypertension (principal); F90.9 Attention-deficit hyperactivity disorder, unspecified type; F98.8 Other specified behavioral and emotional disorders with onset usually occurring in childhood and adolescence; F41.9 Anxiety disorder, unspecified; F17.290 Nicotine dependence, other tobacco product, uncomplicated; Z88.6 Allergy status to analgesic agent; Z88.8 Allergy status to other drugs, medicaments and biological substances
CPT/HCPCS: 99281

== ENCOUNTER 2019-05-17 17:39 | Emergency (ER) | payer OTHER ==
[~2019-05-17] VITALS: Ht 190.5 cm; Wt 81.8 kg
[2019-05-17] MEDS ORDERED: ACETAMINOPHEN 325 MG TABLET PO STA (18:04)
--- NOTE | 2019-05-17 18:12 | ED Head Injury ---
General Chief Complaint: Head/Cervical Problems Stated Complaint: HEAD PAIN Nursing Triage Note: PT REPORTS WAS HIT ON THE HEAD AT WORK BY A FALLING MICROWAVE. DENIES LOC History of Present Illness Date Seen by Provider: May 17, 2019 Time Seen by Provider: 17:55 Initial Comments 29-year-old male presents for left head and neck pain. He was unloading a tr ailer at [facility], a box with a microwave fell off the pile and hit him in the left temporal region and cheek causing him to hyperextend his neck to the right. He denies any loss of consciousness, no nausea and vomiting and no vision changes. He reports mild headache and neck pain. She denies any paresthesias or radicular symptoms in his upper extremities. No previous history of concussions. He does have a superficial laceration to his left third finger at the PIP joint. Occurred: this afternoon (1529) Location: temporal (left) Method of Injury: direct blow Loss of Consciousness: no loss of consciousness Associated Systoms: No Denies Symptoms, No Chest Pain, No Cough, No Diaphoresis, No Fever/Chills; Headaches; No Loss of Appetite, No Malaise, No Nausea/Vomiting, No Rash, No Seizure, No Shortness of Air, No Syncope, No Weakness, No Other Allergies and Home Medications Allergies Coded Allergies: Amphetamine Aspartate (Verified Allergy, Unknown, 08/08/17) amphetamine sulfate (Verified Allergy, Unknown, 08/08/17) atomoxetine HCl (Verified Allergy, Unknown, 08/08/17) dextroamphetamine (Verified Allergy, Unknown, 08/08/17) methylphenidate HCl (Verified Allergy, Unknown, 08/08/17) Home Medications Ondansetron 8 Mg Tab.rapdis, 8 MG PO every 4 hours Prescribed by: YULIET HUERTA on 02/28/17 7154 Patient Home Medication List Home Medication List Reviewed: Yes Review of Systems Review of Systems Constitutional: no symptoms reported, see HPI Eyes: No Symptoms Reported, See HPI Ears, Nose, Mouth, Throat: no symptoms reported, see HPI Respiratory: no symptoms reported, see HPI Cardiovascular: no symptoms reported, see HPI Gastrointestinal: no symptoms reported, see HPI Genitourinary: no symptoms reported, see HPI Psychiatric/Neurological: See HPI, Headache All Other Systems Reviewed Negative Unless Noted: Yes Past Vomsvyo-Proafs-Qrsmnc Hx Past Med/Social Hx: Reviewed Nursing Past Med/Soc Hx Patient Social History Alcohol Use: Denies Use Recreational Drug Use: No Smoking Status: Current Everyday Smoker Type Used: Cigarettes Recent Foreign Travel: No Contact w/Someone Who Travel: No Recent Infectious Disease Expo: No Recent Hopitalizations: No Immunizations Up To Date Tetanus Booster (TDap): Unknown PED Vaccines UTD: Yes Date of Pneumonia Vaccine: Mar 04, 2011 Date of Influenza Vaccine: Mar 04, 2014 Seasonal Allergies Seasonal Allergies: No Past Medical History Surgeries: Yes (PYLORIC STENOSIS REPAIR INFANT) Abdominal Respiratory: No Cardiac: No Neurological: No Reproductive Disorders: No Sexually Transmitted Disease: No HIV/AIDS: No Genitourinary: No Gastrointestinal: No Musculoskeletal: Yes Degenerate Disk Disease Endocrine: No HEENT: Yes (DENTAL PROBLEMS) Cancer: No Psychosocial: Yes ADD/ADHD, Anxiety Integumentary: No Blood Disorders: No Family Medical History No Pertinent Family Hx Physical Exam Vital Signs Vital Signs - First Documented 05/17/19 17:43 Temp 36.6 Pulse 75 Resp 18 B/P (MAP) 133/77 (95) Pulse Ox 100 O2 Delivery Room Air Capillary Refill : Less Than 3 Seconds Height, Weight, BMI Height: 6'4.00" Weight: 180lbs. oz. 81.246404eh; 22.00 BMI Method:Stated General Appearance: WD/WN, no apparent distress HEENT: PERRL/EOMI, normal ENT inspection, TMs normal, pharynx normal Neck: non-tender, full range of motion, supple, normal inspection Cardiovascular: normal peripheral pulses, regular rate, rhythm Respiratory: chest non-tender, lungs clear, normal breath sounds Gastrointestinal: normal bowel sounds, non tender, soft Back: normal inspection, no CVA tenderness Extremities: normal range of motion, non-tender Psychiatric: alert, oriented x 3 Crainal Nerves: normal hearing, normal speech, PERRL; No facial asymmetry Coordination/Gait: normal finger to nose, normal gait, negative Romberg's sign Motor/Sensory: no motor deficit, no sensory deficit, no pronator drift Skin: normal color, warm/dry Climax Coma Score Best Eye Response: (4) Open Spontaneously Best Verbal Response: (5) Oriented Best Motor Response: (6) Obeys Commands Climax Total: 15 Progress/Results/Core Measures Results/Orders My Orders Orders - BANDAR,KATIE DEVELOPMENT COACH Dipht,Pertuss(Acell),Tet Adult (Boostrix (05/17/19 18:15) Acetaminophen Tablet/Caplet (Tylenol T (05/17/19 18:04) Medications Given in ED Current Medications Medications Dose Ordered Sig/Kevin Route Start Time Stop Time Status Last Admin Dose Admin Diphtheria/ Tetanus/Acell Pertussis 0.5 ml ONCE ONCE IM 05/17/19 18:15 05/17/19 18:16 DC 05/17/19 18:11 0.5 ML Vital Signs/I&O 05/17/19 05/17/19 17:43 18:23 Temp 36.6 36.6 Pulse 75 75 Resp 18 18 B/P (MAP) 133/77 (95) 133/77 (95) Pulse Ox 100 100 O2 Delivery Room Air Blood Pressure Mean: 95 POS Progress Progress Note : Time: 17:55 Progress Note Patient seen and evaluated, went into left middle finger cleaned with chlorhexidine and sterile saline. Will give tetanus booster. Tylenol 650 mg for headache. 1820 patient exam unchanged. Discharge instructions and return precautions reviewed. Departure Impression Primary Impression: Minor head injury without loss of consciousness Qualified Codes: S09.90XA - Unspecified injury of head, initial encounter Disposition: 01 HOME, SELF-CARE Condition: Improved Departure-Patient Inst. Decision time for Depature: 18:10 Referrals: [facility] (PCP) Primary Care Physician FREDO MAS (Family) Primary Care Physician Patient Instructions: Generalized Neck Pain (DC), Minor Head Injury (DC) Add. Discharge Instructions: You may take Tylenol 650 mg every 6-8 hours as needed for headache or pain. Avoid aspirin and ibuprofen. Follow-up with your primary care provider if symptoms are not improving or worsen. Stay on ground level, no elevated surfaces for the next 2 weeks. Return to emergency department for disorientation, altered mental status, nausea and vomiting, dizziness, worsening headache, or seizure activity. All discharge instructions reviewed with patient and/or family. Voiced understanding. KATIE PORTILLO May 17, 2019 18:12 POS
[2019-05-17] MEDS ORDERED: TETANUS,DIPTH,PERTUSS P/F (BOOSTRIX) 0.5 ML VIAL IM ONE (18:15)
[2019-05-17 18:23] VITALS: BP 133/77
== END 2019-05-17 18:26 | disposition home or self-care (01) ==
LOC: EDUNIT# 17:39 → ER 17:41
DX: S09.90XA Unspecified injury of head, initial encounter (principal); F90.9 Attention-deficit hyperactivity disorder, unspecified type; F41.9 Anxiety disorder, unspecified; F17.210 Nicotine dependence, cigarettes, uncomplicated; R40.2142 Coma scale, eyes open, spontaneous, at arrival to emergency department; R40.2252 Coma scale, best verbal response, oriented, at arrival to emergency department; R40.2362 Coma scale, best motor response, obeys commands, at arrival to emergency department; Z88.8 Allergy status to other drugs, medicaments and biological substances; W20.8XXA Other cause of strike by thrown, projected or falling object, initial encounter; Y92.59 Other trade areas as the place of occurrence of the external cause
CPT/HCPCS: 90471; 90715; 99284

== ENCOUNTER 2019-09-23 16:45 | Emergency (ER) | payer SELFPAY ==
[~2019-09-23] VITALS: Ht 190 cm; Wt 82.0 kg
[~2019-09-23 16:45] MED LIST changes: -TRAM50TA2 PO; +TRM50T PO
[2019-09-23] MEDS ORDERED: AMOX500C2 PO (17:05)
--- NOTE | 2019-09-23 17:05 | ED EENT ---
History of Present Illness General Chief Complaint: Dental Problems/Pain Stated Complaint: TOOTH PAIN Source: patient Exam Limitations: no limitations History of Present Illness Date Seen by Provider: Sep 23, 2019 Time Seen by Provider: 17:03 Initial Comments Right upper tooth pain for a few days, no swelling no fevers. Timing/Duration: abrupt Severity: moderate Location: mouth, dental Prearrival Treatment: no prearrival treatment Associated Symptoms: denies symptoms Allergies and Home Medications Allergies Coded Allergies: Amphetamine Aspartate (Verified Allergy, Unknown, 08/08/17) amphetamine sulfate (Verified Allergy, Unknown, 08/08/17) atomoxetine HCl (Verified Allergy, Unknown, 08/08/17) dextroamphetamine (Verified Allergy, Unknown, 08/08/17) methylphenidate HCl (Verified Allergy, Unknown, 08/08/17) Home Medications Ondansetron 8 Mg Tab.rapdis, 8 MG PO every 4 hours Prescribed by: YULIET HUERTA on 02/28/17 5811 Patient Home Medication List Home Medication List Reviewed: Yes Review of Systems Review of Systems Constitutional: see HPI Eyes: No Symptoms Reported Ears: No Symptoms Reported Nose: no symptoms reported Mouth: see HPI Throat: no symptoms reported Respiratory: no symptoms reported Cardiovascular: no symptoms reported Musculoskeletal: no symptoms reported Past Riwlete-Eyibaf-Uwuiae Hx Patient Social History Alcohol Use: Rarely Uses Recreational Drug Use: No Smoking Status: Current Everyday Smoker Type Used: Cigarettes Recent Foreign Travel: No Contact w/Someone Who Travel: No Recent Hopitalizations: No Physical Abuse: No Sexual Abuse: No Immunizations Up To Date Tetanus Booster (TDap): Unknown PED Vaccines UTD: Yes Date of Pneumonia Vaccine: Mar 04, 2011 Date of Influenza Vaccine: Mar 04, 2014 Seasonal Allergies Seasonal Allergies: No Past Medical History Surgeries: Yes (PYLORIC STENOSIS REPAIR INFANT) Abdominal Respiratory: No Cardiac: No Neurological: No Reproductive Disorders: No Sexually Transmitted Disease: No HIV/AIDS: No Genitourinary: No Gastrointestinal: No Musculoskeletal: Yes Degenerate Disk Disease Endocrine: No HEENT: Yes (DENTAL PROBLEMS) Cancer: No Psychosocial: Yes ADD/ADHD, Anxiety Integumentary: No Blood Disorders: No Family Medical History No Pertinent Family Hx Physical Exam Height, Weight, BMI Height: 6'4.00" Weight: 180lbs. oz. 81.523389pk; 22.00 BMI Method:Stated General Appearance: WD/WN, no apparent distress Eyes: bilateral eye normal inspection, bilateral eye PERRL, bilateral eye EOMI Ears: bilateral ear auricle normal, bilateral ear canal normal, bilateral ear TM normal Mouth/Throat: No maxillary swelling; other (poor dentition, missing several teeth, gingivitis. No fluctuant abscess) Respiratory: no respiratory distress, no accessory muscle use Gastrointestinal: normal bowel sounds, non tender Departure Impression Primary Impression: Dental caries Additional Impression: Gingivitis Disposition: HOME, SELF-CARE Condition: Stable Departure-Patient Inst. Decision time for Depature: 17:04 Referrals: [facility] (PCP) Primary Care Physician FREDO MAS (Family) Primary Care Physician Patient Instructions: Gingivitis (DC) Add. Discharge Instructions: 1. Return to ER for any concerns 2. Medication as directed 3. All discharge instructions reviewed with patient and/or family. Voiced understanding. Scripts Amoxicillin (Amoxicillin) 500 Mg Capsule 500 MG PO TID, #21 CAP 0 Refills Prov: ANYA CLARK APRN 09/23/19 Images Mouth/Nose 1 - Tenderness ANYA CLARK APRN Sep 23, 2019 17:05
[2019-09-23] MEDS ORDERED: AMOXICILLIN 500 MG (POLYMOX) CAP PO STA (17:06)
[2019-09-23 17:13] VITALS: BP 125/74
== END 2019-09-23 17:14 | disposition home or self-care (01) ==
LOC: EDUNIT# 16:45 → ER 16:46
DX: K02.9 Dental caries, unspecified (principal); K05.10 Chronic gingivitis, plaque induced; F17.210 Nicotine dependence, cigarettes, uncomplicated; F90.9 Attention-deficit hyperactivity disorder, unspecified type; F41.9 Anxiety disorder, unspecified; Z88.8 Allergy status to other drugs, medicaments and biological substances
CPT/HCPCS: 99283

== ENCOUNTER 2019-10-15 09:33 | Emergency (ER) | payer SELFPAY ==
[~2019-10-15] VITALS: Ht 190 cm; Wt 92.3 kg
[~2019-10-15 09:33] MED LIST changes: +AMOX500C2 PO
[2019-10-15 09:35] VITALS: BP 168/101
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
--- NOTE | 2019-10-15 10:21 | NUR ---
NOTIFIED WAS GETTING SOMEONE ADMITTED TO ICU THEN HE WOULD BE NEXT TO BE SEEN. WARM BLANKETS AND BED LAYED DOWN FOR PT.
--- NOTE | 2019-10-15 10:31 | NUR ---
DR JONES TALKED TO PT AND TOLD HIM HE WOULD BE IN SOON HE COULD.
[2019-10-15] MEDS ORDERED: HYDR-3870 PO (10:52)
[2019-10-15] MEDS ORDERED: CLIN150C2 PO (10:52)
--- NOTE | 2019-10-15 10:53 | ED EENT ---
History of Present Illness General Chief Complaint: Dental Problems/Pain Stated Complaint: TOOTH INFECTION Nursing Triage Note: ARRIVED VIA AMB TO ROOM 05 WITH COMPLAINTS OF RIGHT SIDED DENTAL PAIN X1 MONTH AND WAKING UP WITH SWELLING AND INCREASED PAIN. 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 HAS A DENTIST APPT AT THE CLINIC TODAY AT 1300. PT IS ON AMOXICILLIN Source: patient Exam Limitations: no limitations History of Present Illness Date Seen by Provider: October 15, 2019 Time Seen by Provider: 10:49 Initial Comments ER with ongoing right sided maxillary swelling, more swollen since last night. He is already on amoxicillin from his dentist. Worsening despite this. No fever no chills. Timing/Duration: this morning Severity: moderate Associated Symptoms: facial pain/swelling, tooth pain Allergies and Home Medications Allergies Coded Allergies: Amphetamine Aspartate (Verified Allergy, Unknown, 08/08/17) amphetamine sulfate (Verified Allergy, Unknown, 08/08/17) atomoxetine HCl (Verified Allergy, Unknown, 08/08/17) dextroamphetamine (Verified Allergy, Unknown, 08/08/17) methylphenidate HCl (Verified Allergy, Unknown, 08/08/17) Home Medications Amoxicillin 500 Mg Capsule, 500 MG PO TID Prescribed by: ANYA CLARK on 09/23/19 1705 Ondansetron 8 Mg Tab.rapdis, 8 MG PO every 4 hours Prescribed by: YULIET HUERTA on 02/28/17 1748 Patient Home Medication List Home Medication List Reviewed: Yes Review of Systems Review of Systems Constitutional: see HPI Eyes: No Symptoms Reported Ears: No Symptoms Reported Nose: no symptoms reported Mouth: see HPI Throat: no symptoms reported Respiratory: no symptoms reported Cardiovascular: no symptoms reported Musculoskeletal: no symptoms reported Skin: no symptoms reported Neurological: No Symptoms Reported Hematologic/Lymphatic: No Symptoms Reported Past Uaihwgq-Rsitcn-Ggzafh Hx Patient Social History Type Used: Cigarettes Recent Foreign Travel: No Contact w/Someone Who Travel: No Recent Infectious Disease Expo: No Recent Hopitalizations: No Immunizations Up To Date Tetanus Booster (TDap): Unknown PED Vaccines UTD: Yes Date of Pneumonia Vaccine: Mar 04, 2011 Date of Influenza Vaccine: Mar 04, 2014 Seasonal Allergies Seasonal Allergies: No Past Medical History Surgeries: Yes (PYLORIC STENOSIS REPAIR INFANT) Abdominal Respiratory: No Cardiac: No Neurological: No Reproductive Disorders: No Sexually Transmitted Disease: No HIV/AIDS: No Genitourinary: No Gastrointestinal: No Musculoskeletal: Yes Degenerate Disk Disease Endocrine: No HEENT: Yes (DENTAL PROBLEMS) Cancer: No Psychosocial: Yes ADD/ADHD, Anxiety Integumentary: No Blood Disorders: No Family Medical History No Pertinent Family Hx Physical Exam Vital Signs Vital Signs - First Documented 10/15/19 09:35 Temp 36.1 Pulse 104 Resp 16 B/P (MAP) 179/101 (127) Pulse Ox 97 O2 Delivery Room Air Height, Weight, BMI Height: 6'4.00" Weight: 180lbs. oz. 81.228040wk; 25.00 BMI Method:Stated General Appearance: WD/WN, no apparent distress Eyes: bilateral eye normal inspection, bilateral eye PERRL, bilateral eye EOMI Ears: bilateral ear auricle normal, bilateral ear canal normal, bilateral ear TM normal Mouth/Throat: other (right-sided maxillary swelling, there is swelling to the gingival buccal fold at this location.) Neck: non-tender, full range of motion Neurologic/Psychiatric: alert, normal mood/affect, oriented x 3 Skin: normal color, warm/dry Progress/Results/Core Measures Results/Orders Vital Signs/I&O 10/15/19 09:35 Temp 36.1 Pulse 104 Resp 16 B/P (MAP) 179/101 (127) Pulse Ox 97 O2 Delivery Room Air Blood Pressure Mean: 127 Departure Impression Primary Impression: Dental abscess Disposition: 01 HOME, SELF-CARE Condition: Stable Departure-Patient Inst. Decision time for Depature: 10:51 Referrals: [facility] (PCP) Primary Care Physician FREDO MAS (Family) Primary Care Physician Patient Instructions: Tooth Abscess (DC) Add. Discharge Instructions: 1. Return to ER for any concerns 2. Keep your dentist appointment. Antibiotics as directed. All discharge instructions reviewed with patient and/or family. Voiced understanding. Scripts Clindamycin HCl (Cleocin HCl) 150 Mg Capsule 450 MG PO TID, #63 CAP Prov: ANYA CLARK DIGITAL TECHNICIAN 10/15/19 ANYA CLARK APRN October 15, 2019 10:53
[2019-10-15] MEDS ORDERED: LIDOCAINE 1% INJ 20 ML 20 ML VIAL INJ ONE (11:00)
[2019-10-15] MEDS ORDERED: cefTRIAXone 1,000 MG/2.86 ml vial (IM ONLY) IM SCH (11:00)
[2019-10-15] MEDS ORDERED: HYDROcodone/APAP 5 MG/325 MG (LORTAB) TAB PO ONE (11:00)
== END 2019-10-15 11:18 | disposition home or self-care (01) ==
LOC: EDUNIT# 09:33 → ER 09:34
DX: K04.7 Periapical abscess without sinus (principal); Z88.8 Allergy status to other drugs, medicaments and biological substances
CPT/HCPCS: 99284

== ENCOUNTER → 2020-12-20 | Outpatient (CLI) | payer SELFPAY ==
[~2020-12-20] MED LIST changes: +CLIN150C2 PO; +HYDR-3870 PO
--- NOTE | 2020-12-20 15:38 | Diagnostic Imaging Report ---
EXAMINATION: Magnetic resonance imaging of the right knee without intravenous contrast DATE: December 20, 2020. COMPARISON: None. INDICATION: 30-year-old male, right knee pain. Recent tripping injury. TECHNIQUE: Multiplanar, multisequence non contrast enhanced MR imaging was accomplished. FINDINGS: MENISCI: The medial meniscus is intact. The lateral meniscus is intact. LIGAMENTS AND TENDONS: The anterior and posterior cruciate ligaments are intact. The medial collateral ligament is intact. The iliotibial band, mid third lateral capsular ligament, fibular collateral ligament, biceps femoris tendon and conjoined tendon are intact. The quadriceps tendon and patella ligament are intact. JOINT: The articular cartilage surfaces are intact. There is no knee joint effusion, prominent synovitis, or intra-articular body. BONE: There is unremarkable bone marrow signal. Specifically, negative for fracture, osteomyelitis, osteonecrosis, or marrow replacing process. BURSAE AND SOFT TISSUES: There is no Almaraz's cyst. Additional soft tissue assessment is unremarkable. IMPRESSION: 1. Intact menisci and cruciate ligaments. Additional ligaments and tendons are intact. 2. No acute fracture, bone contusion, or other bone marrow signal abnormality. 3. Intact articular cartilage. No knee joint effusion. 4. Unremarkable MRI of the right knee. Dictated by: Dictated on workstation # [id number]
== END ==
LOC: RAD 14:00
PROVIDERS: ATTEND Nurse Practitioner Family
DX: S89.91XA Unspecified injury of right lower leg, initial encounter (principal); W18.49XA Other slipping, tripping and stumbling without falling, initial encounter
CPT/HCPCS: 73721

== ENCOUNTER 2021-09-24 12:01 | Emergency (ER) | payer SELFPAY ==
[~2021-09-24] VITALS: Ht 187.9 cm; Wt 100.0 kg
[2021-09-24 12:30] VITALS: BP 137/86
--- NOTE | 2021-09-24 12:57 | ED Back Pain ---
General Chief Complaint: Back Problems Stated Complaint: L SIDE RIB / BACK PAIN Nursing Triage Note: Pt ambulatory into ER with complaint of back pain x2 days after cleaning. Pt denies trauma or injury. Pain at a 6/10. Source of Information: Patient Exam Limitations: No Limitations History of Present Illness Date Seen by Provider: Sep 24, 2021 Time Seen by Provider: 12:45 Initial Comments Patient is a 31-year-old male who presents to the emergency department today with a chief complaint of left back pain. Patient states that he has been doing some "deep cleaning" the last couple of days. He states 2 days ago he moved a couch and last evening and today he started having pain just below his left shoulder blade that seems to wrap around his left flank into his left lower chest. He is not short of breath. He is not having nausea. No diarrhea. No symptoms of illness such as fevers, cough, congestion. He states that he has tried 800 mg of ibuprofen without relief and his mom gave him a muscle relaxer which helped "a little". He does smoke cigarettes. No other complaints of pain, weakness, numbness or tingling. All other review of systems reviewed and negative except as stated. Timing/Duration: 12-24 Hours Severity: Moderate Pain/Injury Location: Back (left) Radiation: Other (to anterior chest under nipple) Method of Injury: Other (moving a couch) Modifying Factors: Improves With Other (deep breath worsens pain) Associated Symptoms: denies symptoms Allergies and Home Medications Allergies Coded Allergies: Amphetamine Aspartate (Verified Allergy, Unknown, 08/08/17) amphetamine sulfate (Verified Allergy, Unknown, 08/08/17) atomoxetine HCl (Verified Allergy, Unknown, 08/08/17) dextroamphetamine (Verified Allergy, Unknown, 08/08/17) methylphenidate HCl (Verified Allergy, Unknown, 08/08/17) Patient Home Medication List Home Medication List Reviewed: Yes Amoxicillin (Amoxicillin) 500 Mg Capsule, 500 MG PO TID Prescribed by: ANYA CLARK on 09/23/19 1705 Clindamycin HCl (Cleocin HCl) 150 Mg Capsule, 450 MG PO TID Prescribed by: ANYA CLARK on 10/15/19 1052 Hydrocodone/Acetaminophen (Lorcet 5-325 mg Tablet) 1 Each Tablet, 1 EACH PO Q4- 6HR PRN for PAIN-MODERATE Prescribed by: ANYA CLARK on 10/15/19 1053 Ondansetron (Zofran Odt) 8 Mg Tab.rapdis, 8 MG PO every 4 hours Prescribed by: YULIET HUERTA on 02/28/17 1748 Review of Systems Constitutional: see HPI EENTM: no symptoms reported Respiratory: no symptoms reported Cardiovascular: no symptoms reported Gastrointestinal: no symptoms reported Genitourinary: no symptoms reported Musculoskeletal: back pain (left) Skin: no symptoms reported Psychiatric/Neurological: No Symptoms Reported All Other Systems Reviewed Negative Unless Noted: Yes Past Tmkuzlc-Ibzuhc-Rzvoso Hx Patient Social History Tobacco Use?: Yes Tobacco type used: Cigarettes Smoking Status: Current Everyday Smoker Use of E-Cig and/or Vaping dev: No Substance use?: No Alcohol Use?: No Pt feels they are or have been: No Immunizations Up To Date Tetanus Booster (TDap): Unknown PED Vaccines UTD: Yes Influenza Vaccine Up-to-Date: Yes; Up-to-Date Seasonal Allergies Seasonal Allergies: No Past Medical History Surgeries: Yes (PYLORIC STENOSIS REPAIR INFANT) Abdominal Respiratory: No Cardiac: No Neurological: No Reproductive Disorders: No Sexually Transmitted Disease: No HIV/AIDS: No Genitourinary: No Gastrointestinal: No Musculoskeletal: Yes Degenerate Disk Disease Endocrine: No HEENT: Yes (DENTAL PROBLEMS) Cancer: No Psychosocial: Yes ADD/ADHD, Anxiety Integumentary: No Blood Disorders: No Family Medical History No Pertinent Family Hx Physical Exam Vital Signs Vital Signs - First Documented 09/24/21 12:30 Temp 37.0 Pulse 98 Resp 16 B/P (MAP) 137/86 (103) Pulse Ox 98 O2 Delivery Room Air Capillary Refill : Less Than 3 Seconds Height, Weight, BMI Height: 6'4.00" Weight: 180lbs. oz. 81.626593dr; 28.00 BMI Method:Stated General Appearance: No Apparent Distress, WD/WN HEENT: PERRL/EOMI Cardiovascular: Regular Rate, Rhythm Respiratory: Lungs Clear, Normal Breath Sounds, No Accessory Muscle Use, No Respiratory Distress, Other (tenderness to light palpation of left cheset wall just under nipple and over lower ribs. no crepitance) Gastrointestinal: Normal Bowel Sounds, Non Tender, Soft Back: Normal Inspection, No CVA Tenderness, No Vertebral Tenderness, Other (Tenderness just under the left scapula, over the posterior ribs and the left flank. No overlying rash, erythema or crepitance palpated) Extremity: Normal Capillary Refill, Normal Inspection, Normal Range of Motion, Non Tender, No Calf Tenderness Neurologic/Psychiatric: Alert, Oriented x3, No Motor/Sensory Deficits, Normal Mood/Affect, housefellow II-XII Norm as Tested Skin: Normal Color, Warm/Dry Progress/Results/Core Measures Results/Orders Vital Signs/I&O 09/24/21 12:30 Temp 37.0 Pulse 98 Resp 16 B/P (MAP) 137/86 (103) Pulse Ox 98 O2 Delivery Room Air Blood Pressure Mean: 103 Progress Progress Note : Time: 12:54 Progress Note Patient treated in the emergency department with Toradol and Norflex. Advised to take Aleve upnt-ngk-hbbdzba, 2 pills twice daily with food. I am sending a prescription for Robaxin to [facility]. I have advised alternating heat and ice and rkls-sxt-ygudmdz lidocaine patches. Follow-up with [facility]. Return for worsening symptoms. Patient verbalized understanding. All questions are sought and answered. Counseling-Asymptomatic: 3-10 minutes Follow-up with PCP to: Discuss Further Options Departure Impression Primary Impression: Thoracic back sprain Qualified Codes: S23.9XXA - Sprain of unspecified parts of thorax, initial encounter Additional Impression: Tobacco use disorder Disposition: 01 HOME, SELF-CARE Condition: Stable Departure-Patient Inst. Decision time for Depature: 12:55 Referrals: [facility] (PCP/Family) Primary Care Physician Patient Instructions: Muscle Strain (DC) Add. Discharge Instructions: Drink plenty of fluids to stay well-hydrated. You should strongly consider quitting smoking as it will improve your overall health. Wtyk-nru-iqjjodi Aleve, 2 pills twice daily for the next 5 days. Take this medication with food. This will help your pain. Alternate heat and ice packs. You can also use ycsa-egp-tzeuokz Voltaren gel which is a great pain reliever. Lidocaine patches may also be helpful. I have sent a small prescription for muscle relaxers to your [facility]. Take these as needed. Return to the emergency department for any new, concerning or emergent complaints. Scripts Methocarbamol (Methocarbamol) 500 Mg Tablet 1000 MG PO Q6-8HR for Back Pain, #16 TAB Prov: JOHANNE ROBERT MD 09/24/21 JOHANNE ROBERT MD Sep 24, 2021 12:57
[2021-09-24] MEDS ORDERED: METH-731 PO (12:58)
[2021-09-24] MEDS ORDERED: ORPHENADRINE 60 MG/2 ML (NORFLEX) AMP (ED ONLY) IM ONE (13:00)
[2021-09-24] MEDS ORDERED: KETOROLAC 60 MG/2 ML VIAL IM ONE (13:00)
== END 2021-09-24 13:08 | disposition home or self-care (01) ==
LOC: EDUNIT# 12:01 → ER 12:03
DX: S23.9XXA Sprain of unspecified parts of thorax, initial encounter (principal); F17.210 Nicotine dependence, cigarettes, uncomplicated; X58.XXXA Exposure to other specified factors, initial encounter
CPT/HCPCS: 99284

== ENCOUNTER 2022-09-23 17:30 | Emergency (ER) | payer SELFPAY ==
[~2022-09-23 17:30] MED LIST changes: +METH-731 PO
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
--- NOTE | 2022-09-23 18:01 | Diagnostic Imaging Report ---
INDICATION: Finger pain COMPARISON: None. FINDINGS: Multiple radiographic views of the left 4th finger were obtained and show no fracture, dislocation or other acute bony abnormality. Joint spaces are well maintained throughout. The soft tissues appear unremarkable. No unexpected radiopaque foreign body is identified. IMPRESSION: Unremarkable radiographic exam of the left 4th finger. Dictated by: Dictated on workstation # [id number]
[2022-09-23 18:11] VITALS: BP 133/78
== END 2022-09-23 18:14 | disposition home or self-care (01) ==
LOC: EDUNIT# 17:30 → ER 17:36
DX: S60.042A Contusion of left ring finger without damage to nail, initial encounter (principal); F17.210 Nicotine dependence, cigarettes, uncomplicated; Y04.8XXA Assault by other bodily force, initial encounter; Y93.71 Activity, boxing
CPT/HCPCS: 73140